=== PATIENT | male | born 1955 | race Caucasian/White ===

== ENCOUNTER → 2017-09-18 | Day surgery (SDC) | payer OTHER, MEDICARE ==
[~2017-09-18] MED LIST: FENTANYL CITRATE/PF 100MCG/2 ML INJ ONE; HYDROMORPHO PO; HYOSCYAMINE SULFATE 0.5 MG/ML AMP ONE; LEXAPRO20 MG PO; LIDOCAINE HCL 2% LOCAL INJ 5 ML SDV VIAL INJ ONE; MIDAZOLAM HCL 2 MG/2 ML VIAL ONE; OXYCONTIN80 MG PO; PROPOFOL IV EMULSION 10 MG/ML 50 ML VIAL ONE; PROPRANOLOL HCL40 MG PO
--- NOTE | 2017-09-18 18:52 | Operative Report ---
DATE OF PROCEDURE: September 18, 2017 REFERRING PHYSICIAN: Dr. Kate Munoz. PROCEDURE PERFORMED: EGD and biopsies and a colonoscopy with polypectomy and biopsy. INDICATIONS FOR EGD: Dyspepsia. INDICATIONS FOR COLONOSCOPY: Colorectal cancer screening, constipation, history of bright red blood per rectum. MEDICATION: Patient was done under MAC. Please see anesthesiologist's note. PROCEDURE: With patient in the left lateral decubitus position, flexible fiberoptic Olympus gastroscope was introduced into the esophagus under direct visualization without any difficulty. There was some patchy erythema noted in distal esophagus. The scope was then advanced with ease into the stomach. There were some retained solid debris in the stomach compatible with some degree of gastroparesis. Mucosa overlying the antrum and the body revealed some patchy erythema and low-grade to moderate edema and biopsies were obtained sent to stain for H. pylori. Pylorus appeared to be of normal contour and shape. Was intubated with ease, and the scope was advanced all the way to the 2nd portion of the duodenum. The scope was then withdrawn slowly. Mucosa overlying the proximal 2nd portion and the duodenal bulb appeared to be within normal limits. The scope was then withdrawn back into the stomach and retroflexed. Mucosa overlying the fundus and the cardia appeared to be within normal limits. The scope was then straightened out. The stomach was decompressed. Scope was subsequently withdrawn. Patient tolerated procedure well. IMPRESSION: 1. Distal esophagitis, mild. 2. Gastritis biopsied. Biopsy sent to stain for H. pylori. 3. Some retained solid debris in stomach compatible with gastroparesis. PLAN: Follow up histology. Initiate Protonix 40 mg 1 p.o. q.a.m. a.c. PROCEDURE: Patient was then turned around and after adequate lubrication of the anal canal the flexible fiberoptic Olympus colonoscope was inserted into the rectum with ease and advanced all the way to the cecum. 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 There was some retained fecal material in the colon but visualization was fair. The scope was then withdrawn slowly, and other than for melanosis coli, the cecum appeared to be within normal limits. One polyp was snared from the ascending colon. One polyp was snared from the transverse colon. Two polyps were hot biopsied from the transverse colon. The mucosa overlying the descending colon revealed some patchy erythema and moderate edema and biopsies were obtained. The sigmoid and the rectum, other than for melanosis coli, grossly appeared to be within normal limits. The scope was then retroflexed into the distal rectum and small internal hemorrhoids were noted, none of which was actively bleeding. The scope was then straightened out. The rectosigmoid area as well as the distal rectal area were decompressed. The scope was subsequently withdrawn. Patient tolerated the procedure well. IMPRESSION . 1. Melanosis coli. 2. Ascending colon polyps snared. 3. Transverse colon polyps times 3, 1 snared. 2 hot biopsied. 4. Mild to moderate colitis, descending colon. 5. Small internal hemorrhoids, none actively bleeding. PLAN: Follow up histology. Initiate high-fiber, low-fat diet. Initiate Linzess 145 mcg 1 p.o. q.a.m. a.c.. Patient will need a followup colonoscopy in 3 years. Job#: [id number] GH cc:KATE MUNOZ MD
== END | disposition home or self-care (01) ==
LOC: OR 09:59
PROVIDERS: ATTEND Internal Medicine Gastroenterology
DX: K59.00 Constipation, unspecified (principal); D12.2 Benign neoplasm of ascending colon; D12.3 Benign neoplasm of transverse colon; K29.70 Gastritis, unspecified, without bleeding; K52.9 Noninfective gastroenteritis and colitis, unspecified; K63.89 Other specified diseases of intestine; K20.9 Esophagitis, unspecified; K31.89 Other diseases of stomach and duodenum; K64.8 Other hemorrhoids; I10 Essential (primary) hypertension; G89.29 Other chronic pain; F32.9 Major depressive disorder, single episode, unspecified; Z68.28 Body mass index [BMI] 28.0-28.9, adult; Z86.2 Personal history of diseases of the blood and blood-forming organs and certain disorders involving the immune mechanism
CPT/HCPCS: 43239; 45384; 45385; 93005; J1980; J2001; J2250

== ENCOUNTER 2019-06-04 18:42 | Emergency (ER) | payer MEDICARE ==
[~2019-06-04] VITALS: Ht 190.5 cm; Wt 102.1 kg
[~2019-06-04 18:42] MED LIST changes: -FENTANYL CITRATE/PF 100MCG/2 ML INJ ONE; -HYOSCYAMINE SULFATE 0.5 MG/ML AMP ONE; -LIDOCAINE HCL 2% LOCAL INJ 5 ML SDV VIAL INJ ONE; -MIDAZOLAM HCL 2 MG/2 ML VIAL ONE; -PROPOFOL IV EMULSION 10 MG/ML 50 ML VIAL ONE
--- OUTSIDE RECORDS SUMMARY | 2019-06-04 18:45 | XMS REPORT ---
Author Author [facility] Address Unknown Phone Unavailable Care Team Providers Care Business Unit Director Name Role Phone ONESIMO BURGOS Unavailable Unavailable Payers Payer Name Policy Type Policy Number Effective Date Expiration Date Problems This patient has no known problems. Allergies, Adverse Reactions, Alerts Allergy Name Allergy Type Status Severity Reaction(s) Onset Date Inactive Date Treating Clinician Comments diphenhydramine DA Active SV 2018-11-11 00:00:00 No Known Allergies DA Active U 2016-09-21 00:00:00 Medications This patient has no known medications. Results Test Description Test Time Test Comments Text Results Atomic Results Result Comments - CT ABD PELVIS W/CONT 2018-11-11 23:06:00 Name: LINDSAY VERA [facility] : 1955 Age/S: 63 / M [address] Unit #: [id number] Loc: [place] [address] Phys: Junior Lamas MD Acct: [id number] Dis Date: Status: REG ER PHONE #: [phone] Exam Date: 11/11/2018 2220 FAX #: [phone] Reason: abd pain x 2 days EXAMS: CPT CODE: [id number] CT ABD PELVIS W/CONT [id number] REASON FOR EXAM: abd pain x 2 days EXAM ORDER DATE: 11/11/2018 9:26 PM Ordering M.Margarita: Junior Lamas MD PROCEDURE: - CT ABD PELVIS W/CONT contrast-enhanced axial CT images were acquired through the abdomen/pelvis at 5 mm intervals. Sagittal and coronal reformatted images were generated. Automated exposure control was utilized for this reduction. Phases: Venous COMPARISON: CT of the abdomen and pelvis September 21, 2016 FINDINGS: Visualized thorax: There is subsegmental atelectasis in the right lung base. Atherosclerotic disease is present in the left anterior descending coronary artery. Hepatobiliary system: There are a few simple hepatic cysts with the largest measuring 1.8 cm in size, similar to prior exam. Otherwise normal. Pancreas: Atrophic with extensive fatty replacement Spleen: Normal Adrenal glands: Normal Genitourinary system: Multiple simple cysts are present in the right kidney with the largest cyst, located in the superior pole, measuring 7.7 cm in size. This is grossly unchanged from the previous exam. There is a small exophytic cortical cyst in the superior pole of the left kidney measuring 1.4 cm in size which is also stable appearing. Bladder, prostate, and seminal vesicles are within normal limits. Gastrointestinal tract and a ppendix: There is a copious amount of stool and gas throughout the colon. Stomach and small bowel are within normal limits. Abdominal vascular structures: Mild atherosclerotic disease is present in the infrarenal abdominal aorta. PAGE 1 Signed Report (CONTINUED) Name: LINDSAY VERA [facility] : 1955 Age/S: 63 / M [address] Unit #: [id number] Loc: [place] [address] Phys: Junior Lamas MD Acct: [id number] Dis Date: Status: REG ER PHONE #: [phone] Exam Date: 11/11/20182219 FAX #: [phone] Reason: abd pain x 2 days EXAMS: CPT CODE: [id number] CT ABD PELVIS W/CONT 45369 <Continued> Peritoneum and retroperitoneum: No free fluid or free air or adenopathy. Musculoskeletal structures and abdominal wall: Degenerative changes are scattered throughout the visualized spine. Degenerative changes are also present in the bilateral hips. IMPRESSION: 1. Marked distention of the colon with stool and gas consistent with severe constipation. 2. Hepatic cysts and renal cysts are grossly unchanged from prior exam. 3. Marked atrophy and severe fatty replacement of the pancreas, similar to previous study. at 2306 Reported and signed by: Mickey Malagon MD CC: Junior Lamas MD; Onesimo Burgos MD Technologist:Catherine Marshall CTDI: DLP: Trnscb Date/Time: 11/11/2018 (2305) [id number] Orig Print D/T: S: 11/11/2018 (5746) CTDI: DLP: PAGE 2 Signed Report URINALYSIS COMPLETE 2018-11-11 21:54:00 UA COLOR (test code=COLU) LIGHT YELLOW YELLOW UA APPEARANCE (test code=APPU) CLEAR CLEAR UA GLUCOSE DIPSTICK (test code=DGLUU) NORMAL mg/dL NEGATIVE UA BILIRUBIN DIPSTICK (test code=BILU) NEGATIVE mg/dL NEGATIVE UA KETONE DIPSTICK (test code=KETU) neg mg/dL NEGATIVE UA SPECIFIC GRAVITY (test code=SGU) 1.010 1.001-1.035 UA BLOOD DIPSTICK (test code=VISHNU) neg Js/uL NEGATIVE UA PH DIPSTICK (test code=BECKA) 6.0 5.0-8.0 UA PROTEIN DIPSTICK (test code=PROU) neg mg/dL Neg-15 UA UROBILINIOGEN DIPSTICK (test code=URO) norm mg/dL 0.0-0.2 UA NITRITE DIPSTICK (test code=AVILA) NEGATIVE NEGATIVE UA LEUKOCYTE ESTERASE DIPSTICK (test code=LEUU) NEGATIVE uL NEGATIVE UA WBC (test code=WBCU) 0-5 per HPF 0-5 IN SOME URINARY TRACT INFECTIONS THERE MAY NOT BE ENOUGHWBCs IN THE URINE TO TRIGGER AN AUTOMATIC (REFLEX) URINECULTURE. A SEPERATE ORDER FOR URINE CULTURE IS RECOMMENDEDIF THERE IS STRONG SUPPORT FOR A URINARY TRACT INFECTIONCLINICALLY. UA RBC (test code=RBCU) NONE SEEN per HPF 0-5 UA EPITHELIAL CELLS (test code=EPIU) Few (2-5/hpf) per HPF Few UA BACTERIA (test code=BACU) FEW per HPF NONE UA AMORPHOUS SEDIMENT (test code=AMORU) FEW per LPF NONE Urine Source? Clean CatchCOMPREHENSIVE METABOLIC [id number] 21:51:00* Test Item Value Reference Range Comments SODIUM (test code=NA) 137 mmol/L 135-148 POTASSIUM (test code=K) 3.4 mmol/L 3.5-5.1 CHLORIDE (test code=CL) 98 mmol/L 101-109 CARBON DIOXIDE (test code=CO2) 28.0 mmol/L 21-32 ANION GAP (test code=GAP) 14 mmol/L 10-20 GLUCOSE (test code=GLU) 91 mg/dL 74-106 BLOOD UREA NITROGEN (test code=BUN) 13 mg/dL 3-21 CREATININE (test code=CREAT) 1.05 mg/dL 0.55-1.3 BUN/CREATININE RATIO (test code=BUN/CREA) 12.4 10-20 TOTAL PROTEIN (test code=PROT) 6.8 g/dL 6.5-8.4 ALBUMIN (test code=ALB) 3.7 g/dL 3.4-4.8 GLOBULIN (test code=GLOB) 3.1 G/DL 1-10 ALBUMIN/GLOBULIN RATIO (test code=A/G) 1.2 RATIO 0.75-1.50 CALCIUM (test code=CA) 8.3 mg/dL 8.4-10.2 BILIRUBIN TOTAL (test code=BILT) 0.30 mg/dL 0.0-1.0 SGOT/AST (test code=AST) 15 U/L 6-32 SGPT/ALT (test code=ALT) 14 U/L 12-78 Note: Change in REFERENCE RANGE due to new reagent method. ALKALINE PHOSPHATASE TOTAL (test code=ALKP) 78 U/L 38-126 URINALYSIS [id number] 21:43:00* Test Item Value Reference Range Comments UA COLOR (test code=COLU) LIGHT YELLOW YELLOW UA APPEARANCE (test code=APPU) CLEAR CLEAR UA GLUCOSE DIPSTICK (test code=DGLUU) NORMAL mg/dL NEGATIVE UA BILIRUBIN DIPSTICK (test code=BILU) NEGATIVE mg/dL NEGATIVE UA KETONE DIPSTICK (test code=KETU) neg mg/dL NEGATIVE UA SPECIFIC GRAVITY (test code=SGU) 1.010 1.001-1.035 UA BLOOD DIPSTICK (test code=VISHNU) neg Js/uL NEGATIVE UA PH DIPSTICK (test code=BECKA) 6.0 5.0-8.0 UA PROTEIN DIPSTICK (test code=PROU) neg mg/dL Neg-15 UA UROBILINIOGEN DIPSTICK (test code=URO) norm mg/dL 0.0-0.2 UA NITRITE DIPSTICK (test code=AVILA) NEGATIVE NEGATIVE UA LEUKOCYTE ESTERASE DIPSTICK (test code=LEUU) NEGATIVE uL NEGATIVE UA WBC (test code=WBCU) per HPF 0-5 Urine Source? Clean CatchCBC W/AUTO [id number] 21:35:00* Test Item Value Reference Range Comments WHITE BLOOD CELL (test code=WBC) 7.4 K/mm3 4.5-12.5 RED BLOOD CELL (test code=RBC) 3.78 mill/mm3 4.0-5.8 HEMOGLOBIN (test code=HGB) 11.9 gram/dL 13.0-17.5 HEMATOCRIT (test code=HCT) 35.2 % 42.0-52.0 MEAN CELL VOLUME (test code=MCV) 93.1 fL 80-98 MEAN CELL HGB (test code=MCH) 31.5 picogram 27.0-33.0 MEAN CELL HGB CONCETRATION (test code=MCHC) 33.8 gram/dL 33.0-36.0 RED CELL DISTRIBUTION WIDTH (test code=RDW) 13.2 % 11.6-16.2 RED CELL DISTRIBUTION WIDTH SD (test code=RDW-SD) 43.5 fL 39.2-49.5 PLATELET COUNT (test code=PLT) 162 K/mm3 150-450 MEAN PLATELET VOLUME (test code=MPV) 10.5 fL 6.7-11.0 NEUTROPHIL % (test code=NT%) 47.8 % 39.0-69.0 LYMPHOCYTE % (test code=LY%) 35.8 % 25.0-55.0 MONOCYTE % (test code=MO%) 9.6 % 0.0-10.0 EOSINOPHIL % (test code=EO%) 5.9 % 0.0-5.0 BASOPHIL % (test code=BA%) 0.9 % 0.0-1.0 NEUTROPHIL # (test code=NT#) 3.54 K/mm3 1.8-7.7 LYMPHOCYTE # (test code=LY#) 2.66 K/mm3 1.0-5.0 MONOCYTE # (test code=MO#) 0.71 K/mm3 0-0.8 EOSINOPHIL # (test code=EO#) 0.44 K/mm3 0.0-0.5 BASOPHIL # (test code=BA#) 0.07 K/mm3 0.0-0.2 MANUAL DIFF REQUIRED (test code=MDIFF) NO CT ABDOMEN/PELVIS [address] [place] [id number] [place] [address] Patient Name: LINDSAY VERA MR #: [id number] : 1955 Age/Sex: 62/M Req #: [id number] Adm Physician: Ordered by: ONESIMO BURGOS MD Report #: [id number] Location: [facility] Room/Bed: Procedure: [id number] CT/CT ABDOMEN/PELVIS W Ex am Date: 07/22/17 Exam Time: 1917 REPORT STATUS : Signed EXAM: CT Chest, Abdomen and Pelvis WITH contrast INDICATION: Estela st pain and general abdominal pain COMPARISON: 04/21/2008 TECHNIQUE: Chest, ab domen and pelvis were scanned utilizing a multidetector helical scanner from t he lung apex to the pubic symphysis before and after administration of IV cont rast. Coronal and sagittal reformations were obtained. Routine protocol was pe rformed. Scan was performed when during portal venous phase. IV CONTRAST: 100 mL of Isovue-370 ORAL CONTRAST: Water RADIATION DOSE: Total DLP: 1075.72 mGy*cm Estimated effective dos e: (DLP x 0.015 x size factor) mSv COMPLICATIONS: None FINDIN GS: LINES and TUBES: None. LUNGS AND AIRWAYS: The lungs are unremarka ble. Airways are normal. PLEURA: The pleural spaces are clear. HEART AND MEDIASTINUM: The thyroid gland is normal. No mediastinal, hilar or axilla ry lymphadenopathy. The heart is normal in size.. There is no pericardial eff usion. There are mild atherosclerotic calcifications in the aorta and coronar y arteries. Trace of fluid in the superior pericardial recess HEPATOBILIARY : There are few small 1.4 cm through 1.8 cm hypodensities in the liver, c onsistent with simple cysts. No biliary ductal dilation. GALLBLADDER: No radio-opaque stones or sludge. No wall thickening. SPLEEN: No splenomegaly . PANCREAS: No focal masses or ductal dilatation. ADRENALS: No adre nal nodules KIDNEYS/URETERS: Kidneys enhance symmetrically. No hydrone phrosis. There are 3 large simple cyst in the right kidney, the largest measur ing 7.7 cm in diameter in the upper pole of the right. Additional 6.1 cm and 3 .5 cm cyst are present in the right kidney. The left kidney is unremarkable No stones. GI TRACT: No abnormal distention, wall thickening, or evidence of bowel obstruction. Appendix is normal. PELVIC ORGANS/BLADDER: Circu mferential wall thickening of the urinary bladder LYMPH NODES: No lymphaden opathy. VESSELS: There is mild atherosclerotic disease in the aorta and velia or arterial branches. PERITONEUM / RETROPERITONEUM: No free air or fluid. BONES: There are degenerative changes in the lumbar spine. SOFT TISSU ES: Unremarkable. IMPRESSION: 1. No acute intrathoracic, ab dominal or pelvic abnormality. 2. Mild atherosclerotic disease of the thoraco abdominal aorta and branches including coronary arteries. 3. Multiple hepat ic and right renal cysts. 4. Circumferential wall thickening of the urinary b ladder is a nonspecific finding and can be seen in patients with cystitis. Cor relation with UA is recommended Signed by: Dr. Pj Mercer M.D. on 2016 9:15 PM Dictated By: PJ SOUZA MD 14 Transcribed By: OMKAR on 2114 COPY TO: ONESIMO BURGOS MD CT CHEST [address] [place] [address] Patient Name: LINDSAY VERA MR #: [id number] : 1955 Age/Sex: 62/M Req #: [id number] Adm Physician: Ordered by: ONESIMO BURGOS MD Report #: [id number] Location: [facility] Room/Bed: Procedure: [id number] CT/CT CHEST W Exam Date: 07/22/17 Exam Time: 1917 REPORT STATUS: Signed EXAM: CT Chest, Abdomen and Pelvis WITH contrast INDICATION: Chest pain a nd general abdominal pain COMPARISON: 04/21/2008 TECHNIQUE: Chest, abdomen and pelvis were scanned utilizing a multidetector helical scanner from the lung a pex to the pubic symphysis before and after administration of IV contrast. Cor onal and sagittal reformations were obtained. Routine protocol was performed. Scan was performed when during portal venous phase. IV CONTRAST: 100 mL of Isovue-370 ORAL CONTRAST: Water RADIATION DOSE: Total DLP: 1075.72 mGy*cm Estimated effective dose: (DLP x 0.015 x size factor) mSv COMPLICATIONS: None FINDINGS: LINES and TUBES: None. LUNGS AND AIRWAYS: The lungs are unremarkable. Air ways are normal. PLEURA: The pleural spaces are clear. HEART AND MEDIA STINUM: The thyroid gland is normal. No mediastinal, hilar or axillary lympha denopathy. The heart is normal in size.. There is no pericardial effusion. T here are mild atherosclerotic calcifications in the aorta and coronary arterie s. Trace of fluid in the superior pericardial recess HEPATOBILIARY: Th ere are few small 1.4 cm through 1.8 cm hypodensities in the liver, consistent with simple cysts. No biliary ductal dilation. GALLBLADDER: No radio-opa que stones or sludge. No wall thickening. SPLEEN: No splenomegaly. P ANCREAS: No focal masses or ductal dilatation. ADRENALS: No adrenal nodul es KIDNEYS/URETERS: Kidneys enhance symmetrically. No hydronephrosis. There are 3 large simple cyst in the right kidney, the largest measuring 7.7 c m in diameter in the upper pole of the right. Additional 6.1 cm and 3.5 cm cys t are present in the right kidney. The left kidney is unremarkable No stones. GI TRACT: No abnormal distention, wall thickening, or evidence of bowel o bstruction. Appendix is normal. PELVIC ORGANS/BLADDER: Circumferentia l wall thickening of the urinary bladder LYMPH NODES: No lymphadenopathy. VESSELS: There is mild atherosclerotic disease in the aorta and major arteri al branches. PERITONEUM / RETROPERITONEUM: No free air or fluid. BON ES: There are degenerative changes in the lumbar spine. SOFT TISSUES: Unrem arkable. IMPRESSION: 1. No acute intrathoracic, abdominal o r pelvic abnormality. 2. Mild atherosclerotic disease of the thoracoabdominal aorta and branches including coronary arteries. 3. Multiple hepatic and ri ght renal cysts. 4. Circumferential wall thickening of the urinary bladder is a nonspecific finding and can be seen in patients with cystitis. Correlation with UA is recommended Signed by: Dr. Pj Mercer M.D. on 07/22/2017 9:15 PM Dictated By: PJ SOUZA MD 14 Transcribed By: OMKAR on 07/22/172114 COPY TO: ONESIMO BURGOS MD
[2019-06-04 20:57] LABS: ANION GAP 12.8 mmol/L (8-16); BLOOD UREA NITROGEN 8 mg/dL (7-26); BUN/CREATININE RATIO 9 (6-25); CALCIUM 8.8 mg/dL (8.4-10.2); CARBON DIOXIDE 25 mmol/L (22-29); CHLORIDE 95 mmol/L (98-107); CREATININE, SERUM 0.86 mg/dL (0.72-1.25); EST GLOMERULAR FILTRATION RATE > 60 ML/MIN (60-); GLUCOSE 100 mg/dL (74-118); POTASSIUM 3.8 mmol/L (3.5-5.1); SODIUM 129 mmol/L (136-145)
[2019-06-04 21:10] LABS: BASOPHILS # (AUTO) 0.1 (0.0-0.1); MONOCYTES # (AUTO) 0.4 (0.2-0.8)
[2019-06-04 21:28] LABS: EOSINOPHILS # (AUTO) 0.1 (0.0-0.4); HEMATOCRIT 33.3 % (38.2-49.6); HEMOGLOBIN 11.7 g/dL (14.0-18.0); LYMPHOCYTES # (AUTO) 1.1 (1.0-3.2); LYMPHOCYTES % 17.6 % (18.0-39.1); MEAN CORPUSCULAR HGB CONC 35.1 g/dL (31-35); MEAN CORPUSCULAR VOLUME 88.1 fL (81-99); MONOCYTES % 5.8 % (4.4-11.3); NEUTROPHILS # (AUTO) 4.5 (2.1-6.9); NEUTROPHILS % 73.3 % (38.7-80.0); PLATELET COUNT 188 x10e3/uL (140-360); RED BLOOD COUNT 3.78 x10e6/uL (4.3-5.7); RED CELL DISTRIBUTION WIDTH 13.1 % (11.7-14.4)
[2019-06-04 21:40] LABS: CLARITY,URINE CLEAR (CLEAR); COLOR,URINE YELLOW (YELLOW)
[2019-06-04 21:42] LABS: LEUKOCYTE ESTERASE ,URINE NEGATIVE (NEGATIVE); NITRITE,URINE NEGATIVE (NEGATIVE); PROTEIN,URINE DIPSTICK TRACE (NEGATIVE)
[2019-06-04 21:43] LABS: BILIRUBIN,URINE NEGATIVE (NEGATIVE); KETONES,URINE NEGATIVE (NEGATIVE); RBC,URINE 0-5 /HPF (0-5); URINE UROBILINOGEN 0.2 mg/dL (0.2 - 1); WBC,URINE (MAN) 0-5 /HPF (0-5)
[2019-06-04 21:44] LABS: BACTERIA,URINE RARE /HPF; EPITHELIAL CELLS,URINE FEW /LPF
== END 2019-06-04 22:12 | disposition home or self-care (01) ==
LOC: ER 18:42
DX: E87.1 Hypo-osmolality and hyponatremia (principal); I10 Essential (primary) hypertension; F41.9 Anxiety disorder, unspecified; F32.9 Major depressive disorder, single episode, unspecified
CPT/HCPCS: 36415; 80048; 81001; 85025; 99284

== ENCOUNTER 2022-02-23 23:36 | Inpatient (IN) | payer MEDICARE ==
[~2022-02-23] VITALS: Ht 190.5 cm; Wt 89.8 kg
[2022-02-24] VITALS (19 sets, daily range): BP systolic 109–160; BP diastolic 54–96
[2022-02-24 00:09] LABS: BASOPHILS # (AUTO) 0.1 (0.0-0.1); BASOPHILS % 0.8 % (0.0-1.0); EOSINOPHILS # (AUTO) 0.1 (0.0-0.4); EOSINOPHILS % 0.8 % (0.0-6.0); HEMATOCRIT 33.9 % (38.2-49.6); HEMOGLOBIN 12.2 g/dL (14.0-18.0); LYMPHOCYTES # (AUTO) 1.3 (1.0-3.2); LYMPHOCYTES % 14.1 % (18.0-39.1); MEAN CORPUSCULAR VOLUME 86.3 fL (81-99); MONOCYTES # (AUTO) 1.1 (0.2-0.8); MONOCYTES % 11.7 % (4.4-11.3); NEUTROPHILS # (AUTO) 6.5 (2.1-6.9); PLATELET COUNT 233 x10e3/uL (140-360); RED BLOOD COUNT 3.93 x10e6/uL (4.3-5.7); RED CELL DISTRIBUTION WIDTH 12.4 % (11.7-14.4)
[2022-02-24 00:22] LABS: INR 1.01; PROTHROMBIN TIME 14.2 seconds (11.9-14.5)
[2022-02-24 00:30] LABS: ALBUMIN 3.5 g/dL (3.5-5.0); ALBUMIN/GLOBULIN RATIO 1.2 (0.8-2.0); ALKALINE PHOSPHATASE 72 IU/L (40-150); BLOOD UREA NITROGEN 7 mg/dL (7-26); BUN/CREATININE RATIO 9 (6-25); CALCIUM 8.1 mg/dL (8.4-10.2); CARBON DIOXIDE 27 mmol/L (22-29); CHLORIDE 77 mmol/L (98-107); CREATININE, SERUM 0.81 mg/dL (0.72-1.25); GLUCOSE 119 mg/dL (74-118)
[2022-02-24 00:36] LABS: ALANINE AMINOTRANSFERASE < 6 IU/L (0-55); SODIUM 115 mmol/L (136-145)
[2022-02-24] MEDS ORDERED: SODIUM CHLORIDE 0.9% 1000ML 1,000 ML IV SCH (01:00)
[2022-02-24] MEDS ORDERED: IOPAMIDOL 370 MG/ML 100 ML INFUS..BTL INJ ONE (01:17)
[2022-02-24] MEDS ORDERED: HYDRALAZINE HCL 20 MG/ML VIAL IV PRN (03:15)
[2022-02-24 04:15] LABS: ALANINE AMINOTRANSFERASE < 6 IU/L (0-55); ALBUMIN 3.3 g/dL (3.5-5.0); ALBUMIN/GLOBULIN RATIO 1.1 (0.8-2.0); ALKALINE PHOSPHATASE 68 IU/L (40-150); ANION GAP 15.4 mmol/L (8-16); BLOOD UREA NITROGEN 6 mg/dL (7-26); BUN/CREATININE RATIO 8 (6-25); CALCIUM 7.9 mg/dL (8.4-10.2); CARBON DIOXIDE 25 mmol/L (22-29); CHLORIDE 81 mmol/L (98-107); CREATININE, SERUM 0.72 mg/dL (0.72-1.25); GLUCOSE 110 mg/dL (74-118); POTASSIUM 3.4 mmol/L (3.5-5.1); SODIUM 118 mmol/L (136-145)
[2022-02-24] MEDS ORDERED: ASPIRIN 325 MG TAB PO ONE (04:15)
[2022-02-24] MEDS ORDERED: ASPIRIN 81 MG CHEW TAB PO ONE (04:15)
[2022-02-24] MEDS: SODIUM CHLORIDE 0.9% 1000ML 1,000 ML IV SCH ×2 (04:23→13:18)
[2022-02-24] MEDS ORDERED: POTASSIUM CHLORIDE 10MEQ EA PO ONE (10:45)
[2022-02-24 14:28] LABS: CREATINE KINASE MB 3.5 ng/mL (0-5.0)
[2022-02-24] MEDS: KCL 20MEQ/.9 SOD CHL 1,000 ML IV SCH ×2 (15:09→23:11)
[2022-02-24] MEDS: SODIUM CHLORIDE 1 GM TAB PO SCH ×2 (15:09→21:08)
[2022-02-24] MEDS: ONDANSETRON HCL INJ 2MG/ML 2ML 2 MG/ML VIAL IV PRN ×2 (15:37→21:17)
[2022-02-24 16:23] LABS: THYROID STIMULATING HORMONE 2.011 uIU/mL (0.350-4.940)
[2022-02-24 17:00] LABS: FREE THYROXINE INDEX 1.9368 (1.4-3.8)
[2022-02-24] MEDS ORDERED: PNEUMOCOCCAL VACCINE POLYVALENT 23 MCG/0.5 ML VIAL IM ONE (18:50)
[2022-02-24 18:58] LABS: BASOPHILS # (AUTO) 0.1 (0.0-0.1); BASOPHILS % 0.7 % (0.0-1.0); EOSINOPHILS # (AUTO) 0.1 (0.0-0.4); EOSINOPHILS % 1.7 % (0.0-6.0); HEMATOCRIT 37.6 % (38.2-49.6); HEMOGLOBIN 13.1 g/dL (14.0-18.0); LYMPHOCYTES # (AUTO) 1.5 (1.0-3.2); MEAN CORPUSCULAR HEMOGLOBIN 31.2 pg (28-32); MEAN CORPUSCULAR HGB CONC 34.8 g/dL (31-35); MEAN CORPUSCULAR VOLUME 89.5 fL (81-99); MONOCYTES # (AUTO) 1.2 (0.2-0.8); MONOCYTES % 16.1 % (4.4-11.3); NEUTROPHILS # (AUTO) 4.8 (2.1-6.9); NEUTROPHILS % 62.2 % (38.7-80.0); PLATELET COUNT 257 x10e3/uL (140-360); RED CELL DISTRIBUTION WIDTH 12.8 % (11.7-14.4)
[2022-02-24] MEDS: Morphine 4mg INJECTION 4 MG/ML INJ IV PRN (21:17)
[2022-02-25] VITALS (18 sets, daily range): BP systolic 131–184; BP diastolic 70–109
[2022-02-25] MEDS: Morphine 4mg INJECTION 4 MG/ML INJ IV PRN ×3 (01:40→19:42)
[2022-02-25] MEDS: ONDANSETRON HCL INJ 2MG/ML 2ML 2 MG/ML VIAL IV PRN (01:40)
[2022-02-25 05:08] LABS: BASOPHILS # (AUTO) 0.1 (0.0-0.1); EOSINOPHILS # (AUTO) 0.2 (0.0-0.4); HEMATOCRIT 32.6 % (38.2-49.6); HEMOGLOBIN 11.3 g/dL (14.0-18.0); LYMPHOCYTES # (AUTO) 1.6 (1.0-3.2); LYMPHOCYTES % 24.1 % (18.0-39.1); MEAN CORPUSCULAR HEMOGLOBIN 31.3 pg (28-32); MEAN CORPUSCULAR HGB CONC 34.7 g/dL (31-35); MEAN CORPUSCULAR VOLUME 90.3 fL (81-99); MONOCYTES # (AUTO) 0.8 (0.2-0.8); MONOCYTES % 11.4 % (4.4-11.3); NEUTROPHILS % 60.1 % (38.7-80.0); PLATELET COUNT 235 x10e3/uL (140-360); RED BLOOD COUNT 3.61 x10e6/uL (4.3-5.7); RED CELL DISTRIBUTION WIDTH 13.1 % (11.7-14.4)
[2022-02-25 05:32] LABS: ALBUMIN 3.1 g/dL (3.5-5.0); ALBUMIN/GLOBULIN RATIO 1.1 (0.8-2.0); ALKALINE PHOSPHATASE 86 IU/L (40-150); ANION GAP 10.9 mmol/L (8-16); BLOOD UREA NITROGEN 6 mg/dL (7-26); BUN/CREATININE RATIO 7 (6-25); CALCIUM 7.8 mg/dL (8.4-10.2); CARBON DIOXIDE 27 mmol/L (22-29); CHLORIDE 96 mmol/L (98-107); CREATININE, SERUM 0.82 mg/dL (0.72-1.25); GLUCOSE 98 mg/dL (74-118); POTASSIUM 3.9 mmol/L (3.5-5.1); SODIUM 130 mmol/L (136-145)
[2022-02-25 05:33] LABS: ALANINE AMINOTRANSFERASE < 6 IU/L (0-55)
[2022-02-25] MEDS: KCL 20MEQ/.9 SOD CHL 1,000 ML IV SCH (06:51)
[2022-02-25] MEDS ORDERED: PNEUMOCOCCAL VACCINE POLYVALENT 23 MCG/0.5 ML VIAL IM ONE (09:00)
[2022-02-25] MEDS: PROPRANOLOL HCL 40 MG TAB PO SCH ×2 (09:29→17:08)
[2022-02-25] MEDS: SODIUM CHLORIDE 1 GM TAB PO SCH ×3 (09:30→20:58)
[2022-02-25] MEDS: ESCITALOPRAM OXALATE 10 MG TAB PO SCH ×2 (09:30→17:08)
[2022-02-25] MEDS ORDERED: ZOLPIDEM TARTRATE 10 MG TAB PO SCH (21:00)
[2022-02-26] VITALS: BP 133/92
[2022-02-26 06:03] VITALS: BP 142/78
[2022-02-26 07:03] LABS: ANION GAP 12.2 mmol/L (8-16); CALCIUM 8.2 mg/dL (8.4-10.2); CREATININE, SERUM 0.79 mg/dL (0.72-1.25); POTASSIUM 4.2 mmol/L (3.5-5.1)
[2022-02-26 08:22] VITALS: BP 142/82
[2022-02-26 08:28] VITALS: BP 142/82
[2022-02-26] MEDS: ESCITALOPRAM OXALATE 10 MG TAB PO SCH (10:00)
[2022-02-26] MEDS: SODIUM CHLORIDE 1 GM TAB PO SCH (10:00)
[2022-02-26] MEDS: PROPRANOLOL HCL 40 MG TAB PO SCH (10:00)
[2022-02-26 11:32] VITALS: BP 126/76
[2022-02-26] MEDS: Morphine 4mg INJECTION 4 MG/ML INJ IV PRN (15:05)
[2022-02-26] MEDS ORDERED: SODIUM CHLORIDE 1 GM TAB PO SCH (15:15)
[2022-02-26] MEDS ORDERED: SODIUM CHLORIDE1 GM PO (15:43)
[2022-02-26 15:46] VITALS: BP 162/101
[2022-02-26] MEDS ORDERED: LINZESS145 MCG PO (15:58)
[2022-02-26] MEDS ORDERED: ONDANSETRON HCL 4 MG ORAL DISINTEGRATING TAB PO PRN (16:00)
== END 2022-02-26 16:11 | disposition home or self-care (01) | DRG 645 ==
LOC: ER 23:56 → ERHOLD 02-24 03:12 → ICU 02-24 09:43 → MED/SURG2 02-25 22:38
PROVIDERS: ADMIT Family Medicine; ATTEND Family Medicine
DX: E22.2 Syndrome of inappropriate secretion of antidiuretic hormone (principal); E87.6 Hypokalemia; Z85.038 Personal history of other malignant neoplasm of large intestine; I10 Essential (primary) hypertension; F41.9 Anxiety disorder, unspecified; M54.50 Low back pain, unspecified; F32.A Depression, unspecified; G89.4 Chronic pain syndrome; Z20.822 Contact with and (suspected) exposure to COVID-19; D64.9 Anemia, unspecified; Z79.899 Other long term (current) drug therapy; M19.90 Unspecified osteoarthritis, unspecified site; R94.31 Abnormal electrocardiogram [ECG] [EKG]; R91.1 Solitary pulmonary nodule; N28.89 Other specified disorders of kidney and ureter; T45.515A Adverse effect of anticoagulants, initial encounter
CPT/HCPCS: 36415; 70450; 71045; 71260; 74177; 76770; 80048; 80053; 82550; 82553; 83880; 84295; 84436; 84443; 84479; 84484; 84550; 85025; 85610; 93005; 93306; 94799; 99284; J0360; J2270; J2405; J7030; Q9967

== ENCOUNTER 2022-12-14 18:31 | Inpatient (IN) | payer MEDICARE ==
[~2022-12-14] VITALS: Ht 190.5 cm; Wt 90.9 kg
[~2022-12-14 18:31] MED LIST changes: +LINZESS145 MCG PO; +SODIUM CHLORIDE1 GM PO
[2022-12-14 19:14] LABS: BASOPHILS % 0.3 % (0.0-1.0); EOSINOPHILS # (AUTO) 0.1 (0.0-0.4); EOSINOPHILS % 0.6 % (0.0-6.0); HEMATOCRIT 33.2 % (38.2-49.6); HEMOGLOBIN 12.1 g/dL (14.0-18.0); LYMPHOCYTES # (AUTO) 1.7 (1.0-3.2); LYMPHOCYTES % 16.7 % (18.0-39.1); MEAN CORPUSCULAR HEMOGLOBIN 30.9 pg (28-32); MEAN CORPUSCULAR HGB CONC 36.4 g/dL (31-35); MEAN CORPUSCULAR VOLUME 84.9 fL (81-99); MONOCYTES % 9.5 % (4.4-11.3); NEUTROPHILS # (AUTO) 7.4 (2.1-6.9); NEUTROPHILS % 72.4 % (38.7-80.0); PLATELET COUNT 273 x10e3/uL (140-360); RED BLOOD COUNT 3.91 x10e6/uL (4.3-5.7); RED CELL DISTRIBUTION WIDTH 12.1 % (11.7-14.4)
[2022-12-14 19:17] LABS: CLARITY,URINE CLEAR (CLEAR); COLOR,URINE YELLOW (YELLOW); KETONES,URINE NEGATIVE (NEGATIVE); LEUKOCYTE ESTERASE ,URINE NEGATIVE (NEGATIVE); NITRITE,URINE NEGATIVE (NEGATIVE); PROTEIN,URINE DIPSTICK TRACE (NEGATIVE); URINE UROBILINOGEN 0.2 mg/dL (0.2 - 1)
[2022-12-14 19:28] LABS: ALBUMIN 4.1 g/dL (3.5-5.0); ALBUMIN/GLOBULIN RATIO 1.2 (0.8-2.0); ANION GAP 17.7 mmol/L (8-16); CALCIUM 8.8 mg/dL (8.4-10.2); CREATININE, SERUM 0.82 mg/dL (0.72-1.25); POTASSIUM 3.7 mmol/L (3.5-5.1); RBC,URINE 0-5 /HPF (0-5)
[2022-12-14] MEDS ORDERED: IOPAMIDOL 370 MG/ML 100 ML INFUS..BTL INJ ONE (19:32)
[2022-12-14] MEDS ORDERED: SODIUM CHLORIDE 0.9% 1000ML 1,000 ML IV SCH ×2 (19:45→22:15)
[2022-12-14] MEDS ORDERED: ONDANSETRON HCL INJ 2MG/ML 2ML 2 MG/ML VIAL IV PRN (22:15)
[2022-12-15] VITALS (24 sets, daily range): BP systolic 103–184; BP diastolic 65–102
[2022-12-15] MEDS ORDERED: HYDRALAZINE HCL 20 MG/ML VIAL IV PRN (00:15)
[2022-12-15] MEDS: HYDROMORPHONE 1MG/1ML INJ IV PRN ×3 (00:51→20:24)
[2022-12-15] MEDS ORDERED: ACETAMINOPHEN 325 MG TAB PO PRN (01:15)
[2022-12-15] MEDS ORDERED: MELATONIN 3 MG TAB PO PRN (01:15)
[2022-12-15] MEDS ORDERED: GUAIFENESIN/DEXTROMETHORPHAN LIQD 5 ML UDC PO PRN (01:15)
[2022-12-15] MEDS ORDERED: DOCUSATE SODIUM 100 MG CAP PO PRN (01:15)
[2022-12-15] MEDS ORDERED: ALBUTEROL SULF 0.083% NEB SOLN 3 ML NEB NEB PRN (01:15)
[2022-12-15] MEDS ORDERED: HYDROMORPHONE HCL 2 MG TAB PO PRN (01:30)
[2022-12-15] MEDS ORDERED: SALINE 0.65% NAS SOLN 1 SPRAY BTL PRN (01:45)
[2022-12-15] MEDS ORDERED: ENALAPRILAT IV INJ 1.25 MG/ML VIAL IV PRN (02:00)
[2022-12-15] MEDS ORDERED: POLYETHYLENE GLYCOL 3350 17 GM PACK PO PRN (02:15)
[2022-12-15 02:25] LABS: ANION GAP 17.2 mmol/L (8-16); CREATININE, SERUM 0.76 mg/dL (0.72-1.25); POTASSIUM 3.2 mmol/L (3.5-5.1)
[2022-12-15] MEDS ORDERED: ALPRAZOLAM2 MG (05:03)
[2022-12-15] MEDS ORDERED: LEXAPRO20 MG PO (05:03)
[2022-12-15] MEDS: IPRATROPIUM BROMIDE 0.03% NASAL SPRAY 30ML SCH ×2 (06:00→14:00)
[2022-12-15] MEDS ORDERED: [UNRECOGNIZED DRUG - OTHER] PO SCH (06:00)
[2022-12-15 07:02] LABS: ANION GAP 17.2 mmol/L (8-16); CREATININE, SERUM 0.77 mg/dL (0.72-1.25); POTASSIUM 3.2 mmol/L (3.5-5.1)
[2022-12-15] MEDS: DOCUSATE SODIUM 100 MG CAP PO SCH ×3 (09:32→20:23)
[2022-12-15] MEDS: MULTIVITAMINS/MINERALS TAB PO SCH (09:33)
[2022-12-15] MEDS: PROPRANOLOL HCL 40 MG TAB PO SCH ×2 (09:33→16:00)
[2022-12-15] MEDS: SODIUM CHLORIDE 1 GM TAB PO SCH ×2 (09:33→15:59)
[2022-12-15 11:14] LABS: ANION GAP 15.9 mmol/L (8-16); CALCIUM 8.8 mg/dL (8.4-10.2); CREATININE, SERUM 0.86 mg/dL (0.72-1.25); POTASSIUM 2.9 mmol/L (3.5-5.1)
[2022-12-15] MEDS ORDERED: POTASSIUM CHLORIDE 20 MEQ TAB CR PO ONE ×3 (13:30→20:00)
[2022-12-15 15:25] LABS: ANION GAP 15.4 mmol/L (8-16); CALCIUM 8.9 mg/dL (8.4-10.2); CREATININE, SERUM 0.99 mg/dL (0.72-1.25); POTASSIUM 3.4 mmol/L (3.5-5.1)
[2022-12-15 18:29] LABS: ANION GAP 15.4 mmol/L (8-16); CALCIUM 8.5 mg/dL (8.4-10.2); CREATININE, SERUM 0.98 mg/dL (0.72-1.25); POTASSIUM 3.4 mmol/L (3.5-5.1)
[2022-12-16] VITALS (8 sets, daily range): BP systolic 117–144; BP diastolic 73–91
[2022-12-16] MEDS: HYDROMORPHONE 1MG/1ML INJ IV PRN ×4 (05:38→21:52)
[2022-12-16 06:35] LABS: ANION GAP 12.4 mmol/L (8-16); CALCIUM 8.9 mg/dL (8.4-10.2); CREATININE, SERUM 0.89 mg/dL (0.72-1.25); POTASSIUM 4.4 mmol/L (3.5-5.1)
[2022-12-16] MEDS: MULTIVITAMINS/MINERALS TAB PO SCH (10:00)
[2022-12-16] MEDS: SODIUM CHLORIDE 1 GM TAB PO SCH ×2 (10:00→17:53)
[2022-12-16] MEDS: DOCUSATE SODIUM 100 MG CAP PO SCH ×3 (10:00→21:00)
[2022-12-16] MEDS: PROPRANOLOL HCL 40 MG TAB PO SCH ×2 (10:00→17:54)
[2022-12-16] MEDS ORDERED: ONDANSETRON HCL 4 MG ORAL DISINTEGRATING TAB PO PRN (14:15)
== END 2022-12-16 22:22 | disposition home or self-care (01) | DRG 645 ==
LOC: ER 18:44 → ERHOLD 22:15 → ICU 23:58 → MED/SURG3 12-15 18:20
PROVIDERS: ADMIT Family Medicine; ATTEND Family Medicine
DX: E22.2 Syndrome of inappropriate secretion of antidiuretic hormone (principal); F41.9 Anxiety disorder, unspecified; Z85.038 Personal history of other malignant neoplasm of large intestine; F41.1 Generalized anxiety disorder; F32.A Depression, unspecified; E87.6 Hypokalemia; I16.0 Hypertensive urgency; K59.00 Constipation, unspecified; E87.5 Hyperkalemia; G62.9 Polyneuropathy, unspecified
CPT/HCPCS: 36415; 71045; 74177; 80048; 80053; 81001; 83690; 83935; 84295; 84300; 84484; 85025; 87086; 93005; 94799; 99252; 99284; J1170; J7030; Q9967

== ENCOUNTER 2023-03-11 23:12 | Inpatient (IN) | payer MEDICARE ==
[~2023-03-11] VITALS: Ht 190.5 cm; Wt 90.7 kg
[~2023-03-11 23:12] MED LIST changes: +ALPRAZOLAM2 MG PO
[2023-03-11] MEDS ORDERED: ONDANSETRON HCL INJ 2MG/ML 2ML 2 MG/ML VIAL IV STA (23:15)
[2023-03-11] MEDS ORDERED: NALOXONE HCL 2MG/2 ML SYRINGE IV STA (23:15)
[2023-03-11] MEDS ORDERED: SODIUM CHLORIDE 0.9% 1000ML 1,000 ML IV STA (23:15)
[2023-03-11 23:31] LABS: BASOPHILS # (AUTO) 0.1 (0.0-0.1); BASOPHILS % 1.1 % (0.0-1.0); EOSINOPHILS # (AUTO) 0.1 (0.0-0.4); EOSINOPHILS % 2.2 % (0.0-6.0); HEMATOCRIT 32.1 % (38.2-49.6); HEMOGLOBIN 11.5 g/dL (14.0-18.0); LYMPHOCYTES % 15.1 % (18.0-39.1); MEAN CORPUSCULAR HEMOGLOBIN 30.7 pg (28-32); MEAN CORPUSCULAR HGB CONC 35.8 g/dL (31-35); MEAN CORPUSCULAR VOLUME 85.8 fL (81-99); MONOCYTES # (AUTO) 0.4 (0.2-0.8); MONOCYTES % 5.5 % (4.4-11.3); NEUTROPHILS # (AUTO) 4.8 (2.1-6.9); NEUTROPHILS % 75.9 % (38.7-80.0); PLATELET COUNT 237 x10e3/uL (140-360); RED BLOOD COUNT 3.74 x10e6/uL (4.3-5.7)
[2023-03-11 23:52] LABS: ALBUMIN 3.5 g/dL (3.5-5.0); ALBUMIN/GLOBULIN RATIO 1.1 (0.8-2.0); ANION GAP 18.7 mmol/L (8-16); CALCIUM 8.6 mg/dL (8.4-10.2); CREATININE, SERUM 0.85 mg/dL (0.72-1.25); POTASSIUM 3.7 mmol/L (3.5-5.1)
[2023-03-11 23:54] LABS: LIPASE < 4 U/L (8-78)
[2023-03-12] VITALS (7 sets, daily range): BP systolic 167–170; BP diastolic 97–99; PULSE 64–75; RESP 16–18; TEMP 98.1–98.2; O2SAT 95–99
[2023-03-12 01:51] LABS: AMPHETAMINES SCREEN,URINE NEGATIVE (NEGATIVE); BENZODIAZEPINES SCREEN,URINE POSITIVE (NEGATIVE); CLARITY,URINE CLEAR (CLEAR); COLOR,URINE YELLOW (YELLOW); KETONES,URINE 2+ (NEGATIVE); LEUKOCYTE ESTERASE ,URINE NEGATIVE (NEGATIVE); NITRITE,URINE NEGATIVE (NEGATIVE); PHENCYCLIDINE SCREEN,URINE NEGATIVE (NEGATIVE); PROTEIN,URINE DIPSTICK NEGATIVE (NEGATIVE); URINE UROBILINOGEN 0.2 mg/dL (0.2 - 1)
[2023-03-12 01:54] LABS: BACTERIA,URINE RARE /HPF; EPITHELIAL CELLS,URINE RARE /LPF; RBC,URINE 0-5 /HPF (0-5); WBC,URINE (MAN) 0-5 /HPF (0-5)
[2023-03-12] MEDS ORDERED: Morphine 4mg INJECTION 4 MG/ML INJ IV PRN (02:15)
[2023-03-12] MEDS ORDERED: ONDANSETRON HCL INJ 2MG/ML 2ML 2 MG/ML VIAL IV PRN (02:15)
[2023-03-12] MEDS: SODIUM CHLORIDE 0.9% 1000ML 1,000 ML IV SCH ×4 (03:15→17:12)
[2023-03-12] MEDS ORDERED: IOPAMIDOL 370 MG/ML 100 ML INFUS..BTL INJ ONE (03:50)
[2023-03-12] MEDS ORDERED: BENZOCAINE 20% SPR 60 ML CAN ONE ×2 (06:42→10:24)
[2023-03-12 07:09] LABS: CREATINE KINASE 113 IU/L (30-200)
[2023-03-12] MEDS ORDERED: BENZOCAINE 20% SPR 60 ML CAN MT ONE (07:15)
[2023-03-12 12:00] LABS: ALBUMIN 3.4 g/dL (3.5-5.0); ANION GAP 17.8 mmol/L (8-16); CALCIUM 8.4 mg/dL (8.4-10.2); CREATININE, SERUM 0.84 mg/dL (0.72-1.25); POTASSIUM 3.8 mmol/L (3.5-5.1)
[2023-03-12 15:21] LABS: CREATINE KINASE 111 IU/L (30-200)
[2023-03-12] MEDS ORDERED: DILAUDID4 MG PO (16:10)
[2023-03-12 19:53] LABS: ANION GAP 17.5 mmol/L (8-16); CALCIUM 8.6 mg/dL (8.4-10.2); CREATININE, SERUM 0.88 mg/dL (0.72-1.25); MAGNESIUM 1.6 MG/DL (1.3-2.1); POTASSIUM 3.5 mmol/L (3.5-5.1)
[2023-03-12] MEDS: HYDROMORPHONE 2MG/ML 2 MG/ML ML IV PRN (20:24)
[2023-03-13] VITALS: BP 170/97; PULSE 88; RESP 18; TEMP 98.9; O2SAT 99
[2023-03-13] MEDS: SODIUM CHLORIDE 0.9% 1000ML 1,000 ML IV SCH ×2 (00:56→10:04)
[2023-03-13] MEDS: HYDROMORPHONE 2MG/ML 2 MG/ML ML IV PRN ×3 (00:57→10:10)
[2023-03-13] MEDS ORDERED: ZOLPIDEM TARTRATE 5 MG TAB PO PRN (01:30)
[2023-03-13 04:00] VITALS: BP 170/107; PULSE 78; RESP 18; TEMP 99.1; O2SAT 100
[2023-03-13 08:15] VITALS: BP 174/99; PULSE 74; RESP 18; TEMP 98.4; O2SAT 99
[2023-03-13 08:31] LABS: BASOPHILS # (AUTO) 0.1 (0.0-0.1); BASOPHILS % 0.7 % (0.0-1.0); EOSINOPHILS # (AUTO) 0.1 (0.0-0.4); EOSINOPHILS % 1.3 % (0.0-6.0); HEMATOCRIT 31.8 % (38.2-49.6); HEMOGLOBIN 11.1 g/dL (14.0-18.0); LYMPHOCYTES # (AUTO) 1.5 (1.0-3.2); LYMPHOCYTES % 19.8 % (18.0-39.1); MEAN CORPUSCULAR HEMOGLOBIN 30.5 pg (28-32); MEAN CORPUSCULAR HGB CONC 34.9 g/dL (31-35); MEAN CORPUSCULAR VOLUME 87.4 fL (81-99); MONOCYTES # (AUTO) 0.9 (0.2-0.8); MONOCYTES % 11.2 % (4.4-11.3); NEUTROPHILS # (AUTO) 5.1 (2.1-6.9); NEUTROPHILS % 66.7 % (38.7-80.0); PLATELET COUNT 226 x10e3/uL (140-360); RED BLOOD COUNT 3.64 x10e6/uL (4.3-5.7); RED CELL DISTRIBUTION WIDTH 12.3 % (11.7-14.4)
[2023-03-13 08:41] VITALS: BP 174/99; PULSE 74; RESP 18; TEMP 98.4; O2SAT 99
[2023-03-13 08:51] LABS: ALBUMIN 3.3 g/dL (3.5-5.0); ALBUMIN/GLOBULIN RATIO 1.1 (0.8-2.0); ALKALINE PHOSPHATASE 61 IU/L (40-150); BLOOD UREA NITROGEN < 5 mg/dL (7-26); CALCIUM 8.3 mg/dL (8.4-10.2); CARBON DIOXIDE 26 mmol/L (22-29); CHLORIDE 95 mmol/L (98-107); CREATININE, SERUM 0.93 mg/dL (0.72-1.25); GLUCOSE 107 mg/dL (74-118); SODIUM 132 mmol/L (136-145)
[2023-03-13 08:59] LABS: ALANINE AMINOTRANSFERASE < 6 IU/L (0-55); BUN/CREATININE RATIO 5 (6-25)
[2023-03-13] MEDS ORDERED: PROPRANOLOL HCL 40 MG TAB PO SCH (09:00)
[2023-03-13] MEDS ORDERED: ESCITALOPRAM OXALATE 10 MG TAB PO SCH (09:00)
[2023-03-13] MEDS ORDERED: ALPRAZOLAM 1 MG TAB PO SCH (09:00)
[2023-03-13] MEDS ORDERED: SODIUM CHLORIDE 1 GM TAB PO SCH (09:00)
[2023-03-13 09:05] LABS: CREATINE KINASE 148 IU/L (30-200)
[2023-03-13] MEDS ORDERED: POTASSIUM CHLORIDE 20MEQ/100ML 100 ML IV STA (12:09)
[2023-03-13 12:28] VITALS: BP 131/77; PULSE 64; RESP 18; TEMP 98.5; O2SAT 96
[2023-03-13 15:56] VITALS: BP 135/80; PULSE 67; RESP 19; TEMP 98.4; O2SAT 96
== END 2023-03-13 18:00 | disposition home or self-care (01) | DRG 389 ==
LOC: ER 23:15 → ERHOLD 03-12 02:06 → MED/SURG3 03-12 15:09
PROVIDERS: ADMIT Family Medicine; ATTEND Family Medicine
DX: K56.699 Other intestinal obstruction unspecified as to partial versus complete obstruction (principal); E44.0 Moderate protein-calorie malnutrition; E87.1 Hypo-osmolality and hyponatremia; R64 Cachexia; I10 Essential (primary) hypertension; D64.9 Anemia, unspecified; F32.A Depression, unspecified; G89.29 Other chronic pain; G62.9 Polyneuropathy, unspecified; M54.50 Low back pain, unspecified; K59.00 Constipation, unspecified; Z79.899 Other long term (current) drug therapy; Z79.891 Long term (current) use of opiate analgesic; Z68.25 Body mass index [BMI] 25.0-25.9, adult
CPT/HCPCS: 36415; 70450; 71260; 74018; 74177; 80048; 80053; 80307; 80320; 81001; 82140; 82550; 83690; 83735; 84484; 85025; 93306; 94799; 99285; J2270; J2310; J2405; J2543; J3480; J7030; Q9967

== ENCOUNTER 2024-05-31 07:28 | Emergency (ER) | payer MEDICARE ==
[~2024-05-31] VITALS: Ht 190.5 cm; Wt 90.7 kg
[~2024-05-31 07:28] MED LIST changes: +DILAUDID4 MG PO
[2024-05-31 07:37] VITALS: PULSE 87; RESP 18; TEMP 98.4; O2SAT 99
[2024-05-31 08:24] LABS: BASOPHILS # (AUTO) 0.1 (0.0-0.1); EOSINOPHILS # (AUTO) 0.5 (0.0-0.4); EOSINOPHILS % 6.9 % (0.0-6.0); HEMATOCRIT 32.9 % (38.2-49.6); HEMOGLOBIN 10.8 g/dL (14.0-18.0); LYMPHOCYTES % 28.5 % (18.0-39.1); MEAN CORPUSCULAR HEMOGLOBIN 31.7 pg (28-32); MEAN CORPUSCULAR HGB CONC 32.8 g/dL (31-35); MEAN CORPUSCULAR VOLUME 96.5 fL (81-99); MONOCYTES # (AUTO) 0.8 (0.2-0.8); MONOCYTES % 11.8 % (4.4-11.3); NEUTROPHILS # (AUTO) 3.5 (2.1-6.9); NEUTROPHILS % 50.5 % (38.7-80.0); PLATELET COUNT 194 x10e3/uL (140-360); RED BLOOD COUNT 3.41 x10e6/uL (4.3-5.7); RED CELL DISTRIBUTION WIDTH 13.2 % (11.7-14.4); WHITE BLOOD COUNT 6.85 x10e3/uL (4.8-10.8)
[2024-05-31 08:32] LABS: INR 1.07; PROTHROMBIN TIME 14.5 seconds (11.9-14.5)
[2024-05-31 08:33] LABS: PARTIAL THROMBOPLASTIN TIME 32.2 seconds (23.8-35.5)
[2024-05-31 08:34] LABS: ALBUMIN 3.8 g/dL (3.5-5.0); ALBUMIN/GLOBULIN RATIO 1.2 (0.8-2.0); ANION GAP 12.3 mmol/L (8-16); BILIRUBIN,TOTAL 0.4 mg/dL (0.2-1.2); CALCIUM 8.8 mg/dL (8.4-10.2); CREATININE, SERUM 1.38 mg/dL (0.72-1.25); MAGNESIUM 1.7 MG/DL (1.3-2.1); POTASSIUM 4.3 mmol/L (3.5-5.1)
[2024-05-31] MEDS: SODIUM CHLORIDE 0.9% 1000ML 1,000 ML IV STA (08:49)
[2024-05-31 08:54] LABS: THYROID STIMULATING HORMONE 4.377 uIU/mL (0.350-4.940); TROPONIN I 0.002 ng/mL (0-0.300)
[2024-05-31 09:08] LABS: BLOOD UREA NITROGEN 8 mg/dL (7-26); GLUCOSE 98 mg/dL (74-118); OSMOLALITY,SERUM 265 mOsm/kg (278-305); SODIUM 133 mmol/L (136-145)
[2024-05-31 09:10] LABS: ACETAMINOPHEN < 3.0 ug/mL (10-30); ETHANOL < 10.0 mg/dL (0.0-10.0); SALICYLATE < 5.0 mg/dL (0-30)
[2024-05-31 09:52] LABS: CLARITY,URINE CLEAR (CLEAR); COLOR,URINE YELLOW (YELLOW); GLUCOSE, URINE NEGATIVE (NEGATIVE); KETONES,URINE NEGATIVE (NEGATIVE); LEUKOCYTE ESTERASE ,URINE NEGATIVE (NEGATIVE); NITRITE,URINE NEGATIVE (NEGATIVE); PH,URINE 6.5 (5 - 7); PROTEIN,URINE DIPSTICK NEGATIVE (NEGATIVE)
[2024-05-31 09:53] LABS: BILIRUBIN,URINE NEGATIVE (NEGATIVE); URINE UROBILINOGEN 0.2 mg/dL (0.2 - 1)
[2024-05-31 09:59] LABS: BACTERIA,URINE FEW /HPF; EPITHELIAL CELLS,URINE FEW /LPF; WBC,URINE (MAN) 0-5 /HPF (0-5)
[2024-05-31 10:00] LABS: AMPHETAMINES SCREEN,URINE NEGATIVE (NEGATIVE); BENZODIAZEPINES SCREEN,URINE POSITIVE (NEGATIVE); CANNABINOIDS SCREEN,URINE NEGATIVE (NEGATIVE); METHADONE SCREEN, URINE NEGATIVE (NEGATIVE); OPIATES SCREEN,URINE POSITIVE (NEGATIVE); PHENCYCLIDINE SCREEN,URINE NEGATIVE (NEGATIVE)
[2024-05-31 11:05] LABS: SODIUM,URINE 35 mmol/L
== END 2024-05-31 11:46 | disposition home or self-care (01) ==
LOC: ER 07:36
DX: R53.1 Weakness (principal); I10 Essential (primary) hypertension; D64.9 Anemia, unspecified; F32.A Depression, unspecified; M54.9 Dorsalgia, unspecified; G89.29 Other chronic pain; R94.31 Abnormal electrocardiogram [ECG] [EKG]
CPT/HCPCS: 36415; 70450; 71045; 80053; 80307; 80320; 80329 ×2; 81001; 82550; 82947; 83735; 83935; 84295; 84300; 84443; 84484; 84520; 85025; 85610; 85730; 87086; 93005; 99284; J7030